=== PATIENT | male | born 1955 ===

== ENCOUNTER 2022-04-10 17:54 | Outpatient (REF) | payer MEDICAID, SELFPAY ==
[2022-04-10 16:41] LABS: Calculated LDL 122 mg/dL (<100); Cholesterol 201 mg/dL (<200); Glucose 99 mg/dL (74-106); HDL Cholesterol 70 mg/dL (40-60); TSH (W/Ref FT4) 1.62 uIU/mL (0.36-3.74); Triglyceride 47 mg/dL (<150)
== END 2022-04-10 17:55 | disposition home or self-care (01) ==
LOC: NCHCN 17:54
PROVIDERS: PCP Nurse Practitioner Family; Visit Provider Nurse Practitioner Family
DX: F45.8 Other somatoform disorders (principal); Z00.00 Encounter for general adult medical examination without abnormal findings
CPT/HCPCS: 80061; 82947; 84443

== ENCOUNTER 2022-08-04 06:36 | Day surgery (SDC) | payer MEDICAID, SELFPAY ==
--- NOTE | 2022-08-04 06:46 | HPE_ITS ---
Assessment and Plan Assessment and plan (1) Nuclear sclerotic cataract of left eye: Status: Acute Assessment and plan: Assessment: Rapidly progressive cataracts following retinal detachment repair. Plan cataract extraction with intraocular lens implantation to improve visualization of the posterior pole for further retinal surgery. Visual prognosis is guarded due to history of macula off retinal detachment. (2) Posterior subcapsular age-related cataract of left eye: Status: Acute Assessment and plan: Assessment: Rapidly progressive cataracts following retinal detachment repair. Plan cataract extraction with intraocular lens implantation to improve visualization of the posterior pole for further retinal surgery. Visual prognosis is guarded due to history of macula off retinal detachment. (3) History of vitrectomy: Status: Acute Assessment and plan: Assessment: Rapidly progressive cataracts following retinal detachment repair. Plan cataract extraction with intraocular lens implantation to improve visualization of the posterior pole for further retinal surgery. Visual prognosis is guarded due to history of macula off retinal detachment. (4) History of detached retina repair: Status: Acute Assessment and plan: Assessment: Rapidly progressive cataracts following retinal detachment repair. Plan cataract extraction with intraocular lens implantation to improve visualization of the posterior pole for further retinal surgery. Visual prognosis is guarded due to history of macula off retinal detachment. History of Present Illness History of Present Illness Chief Complaint: Decreased vision left eye Narrative: Patient is a 66-year-old male who recently suffered a retinal detachment in the left eye and underwent complex retinal detachment repair including pars plana v itrectomy/cryopexy/scleral buckling/intraocular gas in [place]. He is now developing a dense nuclear cataract in the left eye which is impairing visualization of the posterior pole. He needs further retinal surgery, but the cataract has to be removed prior to any further retinal surgery. Review of Systems All systems reviewed & are unremarkable except as noted in HPI and below PFSH All Active Problems (Updated 08/04/22 @ 06:53 by Satinder Vivas MD) History of detached retina repair (Acute) Posterior subcapsular age-related cataract of left eye (Acute) Nuclear sclerotic cataract of left eye (Acute) History of vitrectomy (Acute) Medical History Detached retina, left Elevated blood pressure reading Globus sensation Surgical History History of detached retina repair 05/17/22 Social History Smoking/Tobacco Use Status: Never Smoking risk assessment performed?: Yes Alcohol Intake: never Drug use: Never Substance use type: does not use Additional Social history: unable to assess privately Meds Allergies and Home Medications Allergies Allergy/AdvReac Type Severity Reaction Status Date / Time No Known Allergies Allergy Unverified 08/04/22 06:55 Home Medications Medication Instructions Recorded Confirmed Type Unknown [No Known Home Meds] 08/01/22 08/01/22 History Exam Eyes Other: Most recent ophthalmic examination is significant for uncorrected visual acuity of 20/25 right eye, counting fingers left eye. Intraocular pressure is 12 OD, 8 OS. Extraocular motility is normal. A left a Farrand pupillary defect is noted. Slit-lamp examination is significant for moderate nuclear and posterior subcapsular cataract of the left eye. Disc cupping is 0.35 OU. The right eye has no evidence of cataract. Posterior pole in the left eye is significant for evidence of prior retinal detachment repair with a scleral buckle, and superior temporal retinal scarring. Resp Auscultation: clear to auscultation bilaterally Cardio Rate: regular rate Rhythm: regular rhythm
[2022-08-04] MEDS: Tropicam./Phenyleph. (1/2.5%) 5 ML BTL OS ×3 (06:54→07:05)
[2022-08-04 06:56] VITALS: BP 149/88; PULSE 60; RESP 16; TEMP 36.7; O2SAT 99
--- NOTE | 2022-08-04 07:04 | W.ANESPRE ---
General Info Date of Service Date Performed: 08/04/22 Height: 5 ft 10 in Weight: 72.4 kg Body Mass Index (BMI): 22.8 Surgical Procedure: Operation Date: 08/04/22 07:40 Proposed Procedure Side Surgeon p Cataract Extraction with IOL Implant Left Satinder Vivas MD Meds Allergies and Home Medications Allergies Allergy/AdvReac Type Severity Reaction Status Date / Time No Known Allergies Allergy Unverified 08/04/22 06:55 Home Medication Medication Instructions Recorded Unknown [No Known Home Meds] 08/01/22 Current Visit Medications: Current Medications Generic Name Dose Route Start Last Admin Trade Name Freq PRN Reason Stop Dose Admin Acetaminophen 1,000 mg 08/04/22 06:00 Acetaminophen 500 Mg Tab PO Q4H PRN PRN Miscellaneous Medication 0 ml 08/04/22 06:00 Prednisolone 1%, Moxifloxacin 0.5%, Nepafenac 0.1% 5ml Btl OS DIRECTED DARON Miscellaneous Medication 0 ml 08/04/22 06:00 08/04/22 07:00 Tropicam./Phenyleph. (1/2.5%) 5 Ml Btl OS 1 drp DIRECTED DARON Administration Tetracaine HCl 0 ml 08/04/22 06:00 Tetracaine 0.5% 4 Ml Btl OS DIRECTED DARON PFSH Active Problems Active Problems: Problem Status Onset Code History of detached retina repair Z98.890, Z86.69 Posterior subcapsular age-related cataract of left eye H25.042 Nuclear sclerotic cataract of left eye H25.12 History of vitrectomy Z98.890 Medical History Medical History Detached retina, left Elevated blood pressure reading Globus sensation Medical History Comments:: postop urinary retention Surgical History Surgical History History of detached retina repair 05/17/22 Tobacco Smoking/Tobacco Use Status: Never Alcohol Alcohol Intake: never Substance Use Substance use: Never Substance use type: does not use Vital Signs and Lab Results Vital Signs Most Recent Vital Signs in EMR: Most Recent Vital Signs Temp Pulse Resp BP Pulse Ox 36.7 C 60 16 149/88 H 99 08/04/22 06:56 08/04/22 06:56 08/04/22 06:56 08/04/22 06:56 08/04/22 06:56 Lab Results Blood Type / Crossmatch: No Data to Display Complete Blood Count: No Data to Display Complete Metabolic Panel: No Data to Display Liver Function Panel: No Data to Display Coagulation Panel: No Data to Display Cardiac Panel: No Data to Display Arterial Blood Gas: No Data to Display Venous Blood Gas: No Data to Display Pancreas Panel: No Data to Display Thyroid Panel: No Data to Display Infectious Disease: No Data to Display Blood Cultures: No Data to Display Toxicology Panel: No Data to Display Anesthesia Assessment and Plan Anesthesia History Personal History: No History of Anesthesia Complications Family History: No Family History of Anesthesia Complications Exercise Tolerance Exercise Tolerance: Metabolic Equivalents>4 Pertinent Negatives Pertinent Negatives: No Symptoms of GERD, No Major Cardiovascular Symptoms or Complaints and No Major Pulmonary Symptoms or Complaints Cardiac & Pulmonary Exam Cardiac Exam: Normal S1/S2 Heart Sounds Pulmonary Exam: Clear Bilateral Breath Sounds Implantable Cardiac Device Does patient have a Pacemaker or an ICD?: No Airway Exam Known Difficult Airway: No Mallampati Class: 2 Mouth Opening: Normal (> 3cm) Thyromental Distance: Greater than 3 cm Neck Range of Motion: Full ROM Neck Circumference: Normal Teeth Condition: Normal Dentition ASA Classification ASA Score: ASA 2 Emergency Case?: No NPO Status NPO Status: NPO Clears >2 hours, Solids >8 hours Anesthesia Plan Resuscitation Status: Full Code Anesthesia Technique: MAC Anesthesia Airway Planned: Natural Airway Monitors Used: Standard Monitors
[2022-08-04 07:06] VITALS: BMI 22.8
[2022-08-04] MEDS: Lidocaine 2% Jelly 6 ML SYR (07:26)
[2022-08-04] MEDS: Balanced Salt Soln.-PLUS 500 ML BAG (07:26)
[2022-08-04] MEDS: Duovisc Viscoelastic System EACH 1 EACH (07:26)
[2022-08-04] MEDS: Tetracaine 0.5% 4 ML BTL OS (07:26)
[2022-08-04] MEDS: Lidocaine 1% Pres-Free 5 ML VIAL (07:26)
[2022-08-04] MEDS: Povidone-Iodine Ophth 30 ML BTL (07:26)
[2022-08-04] MEDS: Trypan Blue 0.06% 0.5 ML SYR (07:26)
[2022-08-04 08:14] VITALS: BP 143/92; PULSE 55; RESP 16; TEMP 36.6; O2SAT 100
--- NOTE | 2022-08-04 08:28 | W.PM.DSUDISC ---
Date of service: 08/04/22 Time of Service: 08:28 Discharge Plan Disposition Patient Disposition: HOME Condition: Good Discharge Details Attending Provider: Satinder Vivas Primary Care Provider: Gabriella Enriquez Home Meds and New Rx's Prescriptions: No Action No Known Home Meds Discharge Instructions Stand Alone Forms: Post-op Topical Cataract, Magdi Hill (DSU) Discharge Orders Discharge Orders: Discharge Order (Routine); Ordered 08/04/22 Ordered By: Satinder Vivas DS: Diagnosis Discharge Diagnosis (1) Nuclear sclerotic cataract of left eye: Status: Resolved (2) Posterior subcapsular age-related cataract of left eye: Status: Resolved (3) History of vitrectomy: Status: Chronic (4) History of detached retina repair: Status: Chronic
--- NOTE | 2022-08-04 08:29 | ROE_ITS ---
Date of service: 08/04/22 Time of Service: 08:30 Operative Note Operative Note DATE OF PROCEDURE: 08/04/22 PRE-OP DIAGNOSIS: Nuclear/posterior subcapsular cataract, left eye Status post retinal detachment repair with pars plana vitrectomy and scleral buckle, left eye POST-OP DIAGNOSIS: same PROCEDURE: Cataract extraction using phacoemulsification with intraocular lens implant, left eye, using capsular staining with Vision Blue SURGEON: Satinder Vivas ANESTHESIA TYPE: Local By Surgeon and MAC Refer to Anesthesia Record COMPLICATIONS: None Patient was transported to: same day Patient's condition: stable Implants: Randy [employer] Randy / [employer] Sensar AR40e Morcher Type 15A capsular tension ring Indications: Progressive decreased vision due to cataract, left eye, with poor red reflex Status post complex retinal detachment repair with pars plana vitrectomy, scleral buckling, cryopexy, C3F8 gas. Procedure Description: CATARACT SURGERY OPERATIVE REPORT PREOPERATIVE DIAGNOSIS: 1. Dense nuclear/posterior subcapsular cataract, left eye 2. Poor red reflex secondary to #1 3. Status post complex retinal detachment repair with pars plana vitrectomy, scleral buckling, cryopexy, C3F8 gas POSTOPERATIVE DIAGNOSIS: Same OPERATION: 1. Cataract extraction using phacoemulsification with posterior chamber intraocular lens implant, left eye. 2. Capsular staining with Vision Blue, left eye 3. Insertion of capsular tension ring, left eye IOL: IOL Dessert Cup Machine Feeder/Model: Randy & Randy / FRANCISCA Sensar AR40e IOL Power: + 20.0 diopters IOL Serial Number: [id number] Optic Diameter: 6.0 mm Haptic/Overall Diameter: 13.0 mm PHACO INFO: Doron Hutchison [employer]urion Vision System with OZil and Active [employer]uidics Cumulative Dispersed Energy (CDE): 21.03 seconds SURGEON: Satinder Vivas MD, LISA ANESTHESIA: Monitored A [facility] ([facility] [place]), with local sub-tenon's anesthetic infiltration COMPLICATIONS: None SPECIMENS: None INDICATIONS FOR PROCEDURE: The patient is a 66-year-old gentleman who developed a macula off retinal detachment and recently underwent complex retinal detachment repair in April with pars plana vitrectomy, scleral buckling, cryopexy, and C3F8 gas. He has now developed a rather dense nuclear/posterior subcapsular cataract in the right eye, impairing view of the posterior pole. Further retinal surgery is necessary, so cataract surgery undertaken in order to improve visualization of the retina. Visual prognosis is guarded due to the history of macula off detachment. PROCEDURE: The correct surgical eye was identified and marked as the left eye and the pupil was dilated in the preoperative area using mydriatics and cycloplegics. The dilated pupil size was 5.0 mm. The patient elected to proceed without oral sedation. The patient was brought to the operating room w here cardiopulmonary monitoring was instituted and surgical time-out was performed, confirming the correct operative eye and IOL power. Topical anesthesia was administered and ophthalmic povidone-iodine 5% was instilled into the conjunctival fornices. Lidocaine gel was applied to the cornea and the margo-ocular area was prepped with Betadine 10% solution and draped in the usual sterile fashion for intraocular surgery, including an aperture drape. A Tegaderm transparent film dressing was cut in half and used to cover the lashes and lid margins. Care was taken to sequester the lashes and lid margins under the Tegaderm dressing. A lid speculum was placed between the lids of the operative eye and the Doron Lux[employer] Revalia operating microscope was maneuvered into position. Domingo scissors were then used to make a conjunctival buttonhole approximately 6mm posterior to the limbus in the inferonasal quadrant. Blunt dissection was carried out to expose bare sclera, and a blunt-tipped sub-tenon?s anesthesia cannula was introduced and passed posteriorly along the globe where a 50-50 mixture of 0.5% ropivacaine and 1% non-preserved plain lidocaine was injected into posterior sub-Tenon?s space. A sideport knife was used to make a paracentesis port superiorly/superiortemporally. Intraocular phenylephrine/lidocaine was injected int the anterior chamber.. Air was then injected into the anterior chamber, followed by Vision Blue, which was painted over the anterior capsule and then irrigated out using BSS. The anterior chamber was filled with viscoelastic. A keratome knife was used to create a 2- plane near clear corneal tunnel extending approximately 2 mm into clear cornea temporally. A flap was raised on the anterior capsule and capsulorhexis forceps were used to complete a continuous curvilinear capsulorhexis of 4.8 mm. Significant zonular laxity was noted, and the capsule was quite thin. The anterior chamber was also noted to be quite deep. Balanced salt solution was then used to perform cortical cleaving hydrodissection and nuclear hydrodelineation until the lens could be freely rotated within the capsular bag. The lens nucleus was then disassembled and removed within the capsular bag and iris plane using phacoemulsification. Nuclear splitters were used to aid in cracking the dense nucleus into 2 yolande- nuclei and to avoid excessive manipulation within the capsular bag. Residual cortical material was removed using the 45-degree angled silicone I/A tip with 0.3mm port. The posterior capsule was carefully polished to remove as much residual lens epithelial cells as safely possible. The capsular bag was then inflated and the anterior chamber deepened with viscoelastic. The main sacral incision was slightly enlarged. To stabilize the zonular laxity and prevent future capsular phimosis, a Morcher Type 15 capsular tensioning was then inserted into the capsular bag without difficulty. the lens implant described above was inserted into the capsular bag using the GLSSald Injector. A Kuglen hook was used to dial the IOL into position. Residual viscoelastic was then removed first from posterior to the IOL, then from the anterior chamber using the I/A handpiece. The lens implant was noted to center nicely within the capsular bag. The incisions were stromally hydrated, and the anterior chamber was reformed using BSS. Then 0.5cc of moxifloxacin 1.0mg/ml were injected into the capsular bag and anterior chamber. The incisions were checked with a Weck spear and found to be secure. A single interrupted 10-0 nylon suture was placed across the main sacral incision. Several drops of ophthalmic povidone-iodine 5% were then applied to the eye followed by two drops of Imprimis combination prednisolone/moxifloxacin/nepafenac solution. The drapes were removed and a clear plastic protective eye shield was placed over the eye. The patient was then returned to Same Day Surgery in stable condition.
--- NOTE | 2022-08-04 09:56 | W.ANESPOSTOP ---
Postoperative Evaluation Date, Time and Location Date Performed: 08/04/22 Time Performed: 08:15 Patient Location: Day Surgery Unit Vital Signs Most Recent Imported Vital Signs: Most Recent Vital Signs Temp Pulse Resp BP Pulse Ox 36.6 C 55 L 16 143/92 H 100 08/04/22 08:14 08/04/22 08:14 08/04/22 08:14 08/04/22 08:14 08/04/22 08:14 Pain Score Most Recent Pain Score: Most Recent Pain Score Pain Level 0 08/04/22 06:56 Assessment Mental Status: Awake (Alert & Oriented to Patient Baseline) Airway and Respiratory Function: Patent airway with normal (patient baseline) respiratory exam Cardiovascular Function: Hemodynamically Stable Hydration Status: Adequately Hydrated Nausea & Vomiting: No Nausea or Vomiting Pain: Pt. Denies Any Pain Peripheral Nerve Block: Patient did not receive a nerve block
== END 2022-08-04 09:02 | disposition home or self-care (01) ==
PROVIDERS: PCP Nurse Practitioner Family; Visit Provider Ophthalmology
PROC: (CPT 66982; principal; 2022-08-04 07:30)
DX: H25.042 Posterior subcapsular polar age-related cataract, left eye (principal); H26.8 Other specified cataract
CPT/HCPCS: 66982; V2632